=== PATIENT | female | born 1965 | race Caucasian/White ===

== ENCOUNTER 2024-06-29 12:31 | Outpatient (CLI) | payer BC, SELFPAY | END 2024-06-29 12:32 | disposition home or self-care (01) | LOC: AMB 07-06 06:21 | PROVIDERS: PCP Internal Medicine; Visit Provider Emergency Medicine Emergency Medical Services | DX: S59.912A Unspecified injury of left forearm, initial encounter (principal); V43.61XA Car passenger injured in collision with sport utility vehicle in traffic accident, initial encounter; Y92.413 State road as the place of occurrence of the external cause | CPT/HCPCS: A0425; A0427 ==